=== PATIENT | female | born 1945 | race Caucasian/White ===

== ENCOUNTER → 2024-04-23 09:24 | Outpatient (REF) | payer MEDICARE, OTHER, SELFPAY ==
[2024-04-23 12:07] LABS: ALT (SGPT) 22 U/L (0-35); AST (SGOT) 31 U/L (14-36); Albumin 4.7 g/dl (3.5-5.0); Alkaline Phosphatase 74 U/L (38-126); Blood Urea Nitrogen 22 mg/dl (7-17); Carbon Dioxide 25 mmol/L (22-30); Chloride 106 mmol/L (98-107); Glucose 94 mg/dl (70-99); Potassium 4.3 mmol/L (3.5-5.1); Sodium 140 mmol/L (135-145); Total Bilirubin 0.8 mg/dl (0.2-1.3); Total Protein 7.3 g/dl (6.3-8.2); eGFR > 60.00
[2024-04-23 12:14] LABS: Vitamin D, 25-OH*** 65.3 ng/mL (30-80)
== END ==
LOC: HWLAB 09:24
PROVIDERS: ATTENDING PHYSICIAN Internal Medicine Rheumatology; FAMILY PHYSICIAN Internal Medicine; REFERRING PHYSICIAN Obstetrics & Gynecology
DX: E55.9 Vitamin D deficiency, unspecified (principal); M81.0 Age-related osteoporosis without current pathological fracture; Z51.81 Encounter for therapeutic drug level monitoring
CPT/HCPCS: 36415; 80053; 82306

== ENCOUNTER → 2025-05-05 07:54 | Outpatient (REF) | payer MEDICARE, OTHER, SELFPAY ==
[2025-05-05 10:21] LABS: ALT (SGPT) 17 U/L (0-35); Albumin 4.6 g/dl (3.5-5.0); Alkaline Phosphatase 56 U/L (38-126); Calcium 9.5 mg/dl (8.4-10.2); Carbon Dioxide 26 mmol/L (22-30); Chloride 109 mmol/L (98-107); Potassium 3.8 mmol/L (3.5-5.1); Sodium 142 mmol/L (135-145); Total Protein 7.1 g/dl (6.3-8.2); eGFR > 60.00
[2025-05-05 10:30] LABS: Vitamin D, 25-OH*** 72.5 ng/mL (30-80)
[2025-05-05 10:40] LABS: AST (SGOT) 29 U/L (14-36); Blood Urea Nitrogen 20 mg/dl (7-17); Glucose 87 mg/dl (70-99)
[2025-05-07 11:15] LABS: tTG IgA Antibody 1.2 EU/ml (0-19)
== END ==
LOC: HWLAB 07:54
PROVIDERS: ATTENDING PHYSICIAN Physician Assistant; FAMILY PHYSICIAN Internal Medicine; REFERRING PHYSICIAN Internal Medicine Gastroenterology
DX: E55.9 Vitamin D deficiency, unspecified (principal); M81.0 Age-related osteoporosis without current pathological fracture; K58.2 Mixed irritable bowel syndrome
CPT/HCPCS: 36415; 80053; 82306; 83516

== ENCOUNTER → 2025-07-17 09:49 | Outpatient (REF) | payer MEDICARE, OTHER, SELFPAY | LOC: HWRAD 09:49 | PROVIDERS: ATTENDING PHYSICIAN Internal Medicine Rheumatology; FAMILY PHYSICIAN Internal Medicine; REFERRING PHYSICIAN Obstetrics & Gynecology | DX: M81.0 Age-related osteoporosis without current pathological fracture (principal) | CPT/HCPCS: 77080 ==

== ENCOUNTER → 2025-08-18 09:31 | Outpatient (REF) | payer MEDICARE, OTHER, SELFPAY ==
[2025-08-18 12:24] LABS: Hematocrit 42.7 % (37.0-47.0); Hemoglobin 14.0 g/dL (12.0-16.0); Mean Corp Hgb Conc. 32.8 g/dL (33.0-37.0); Mean Corpuscular Volume 96.8 fL (81.0-99.0); Nucleated Red Blood Cells % 0 %; Platelet Count 275 10^3/uL (130-400); Red Cell Dist. Width 12.6 % (11.5-14.5)
[2025-08-18 12:33] LABS: ALT (SGPT) 20 U/L (0-35); AST (SGOT) 28 U/L (14-36); Albumin 4.7 g/dl (3.5-5.0); Alkaline Phosphatase 60 U/L (38-126); Blood Urea Nitrogen 22 mg/dl (7-17); Calcium 9.7 mg/dl (8.4-10.2); Carbon Dioxide 28 mmol/L (22-30); Chloride 106 mmol/L (98-107); Glucose 96 mg/dl (70-99); HDL Cholesterol 47 mg/dl; LDL Cholesterol, Calculated 126 mg/dl; Potassium 4.4 mmol/L (3.5-5.1); Sodium 141 mmol/L (135-145); Total Protein 7.4 g/dl (6.3-8.2); Very Low Density Lipoprotein 29 mg/dl (0-30); eGFR > 60.00
[2025-08-18 12:59] LABS: TSH 2.04 uIU/ml (0.47-4.68)
[2025-08-18 14:03] LABS: Glycohemoglobin (HgbA1c) 5.2 % (4.0-5.9)
== END ==
LOC: HWLAB 09:31
PROVIDERS: ATTENDING PHYSICIAN Internal Medicine; OTHER PHYSICIAN Obstetrics & Gynecology; REFERRING PHYSICIAN Internal Medicine Rheumatology
DX: K21.9 Gastro-esophageal reflux disease without esophagitis (principal); E78.2 Mixed hyperlipidemia; R53.83 Other fatigue; R73.01 Impaired fasting glucose
CPT/HCPCS: 36415; 80053; 80061; 83036; 84443; 85025